=== PATIENT | male | born 1960 | race African-American/Black ===

== ENCOUNTER 2016-08-24 15:38 | Inpatient (IN) | payer OTHER ==
--- NOTE | ~2016-08-24 | DS ---
Discharge Summary [place] [id number] [place]. [address] NAME: RAHAT WEBB : 62 STATUS : DIS IN PAT#: [id number] AGE: 55 ADM/REG DATE : 08/24/16 MR#: [id number] REPORT SERV DATE: 08/31/16 DICTATED BY: DILLON THORPE DATE: 08/30/16 REPORT STATUS : Draft TRANSCRIBED BY: JUANCHO DATE: 08/30/16 ADMISSION DATE: 08/24/2016 DISCHARGE DATE: 08/30/2016 DISCHARGE DIAGNOSES: 1. Right upper quadrant pain/nausea. 2. Chronic hypertension. 3. Type 2 diabetes. 4. Hepatocellular carcinoma. 5. Increased liver enzymes. 6. Thrombocytopenia secondary to Nexavar. CONSULTATION: Giovanni Lopez M.D., [facility]. IMAGIN. CT abdomen and pelvis, 08/24/2016. Impression: Liver is enlarged and larger than prior exam. Largest dimension on CORONAL study 24.7 x 21.1 cm versus 21.4 x 17.8 cm. Widespread metastasis are present in the liver. Small volume of ascites in the celiac gutters and in the perisplenic space larger than on prior exam. 2. Chest x-ray, 08/24/2016. Impression: Lungs are clear. No cardiopulmonary abnormality. HOSPITAL COURSE: Please refer to history and physical dictated on 08/25/[address] Houston, also refer to interim note by Darlene Tate on 08/24/2016. This patient is a 55-year-old male, who presents with a history of hepatocellular carcinoma diagnosed in July 2016. He is currently under the care of Dr. Alexey Tovar. The patient presented in [facility]'s Emergency Room with complaints of intractable abdominal pain, nausea, and vomiting. Initial diagnostic workup indicated progression of metastatic hepatocellular cancer. The patient was admitted for further evaluation and treatment. Due to progression of disease the patient is being discharged to [facility] today. The patient and spouse are in agreement with plan. agency manager is also working with the patient regarding discharge needs. This patient's discharge medication will be addressed per [facility]. This discharge took less than 30 minutes. [facility]/JUANCHO Dillon Thorpe NP / [id number] Discharge Summary [place] [address] [address] NAME: RAHAT WEBB : 62 STATUS : DIS IN PAT#: [id number] AGE: 55 ADM/REG DATE : 08/24/16 MR#: [id number] REPORT SERV DATE: 08/31/16 DICTATED BY: DILLON THORPE DATE: 08/30/16 REPORT STATUS : Draft TRANSCRIBED BY: JUANCHO DATE: 08/30/16 CC: MD Terrance Connelly M.D.
--- NOTE | ~2016-08-24 | IDS ---
Interim Discharge Summary [facility] [address] [place]. [address] NAME: RAHAT WEBB : 62 STATUS : ADM IN PAT#: [id number] AGE: 55 ADM/REG DATE : 08/24/16 MR#: [id number] REPORT SERV DATE: 08/30/16 DICTATED BY: DATE: REPORT STATUS : Draft TRANSCRIBED BY: MODL DATE: 08/29/16 ADMISSION DATE: 08/24/2016 DISCHARGE DATE: DISCHARGE DATE: Interim summary covers dates of service between 08/24/2016 and 08/29/2016. INTERIM DIAGNOSES: 1. Right upper quadrant pain/nausea. 2. Chronic hypertension. 3. Type 2 diabetes. 4. Increased liver enzymes. 5. Thrombocytopenia. 6. Hepatocellular carcinoma. CONSULTATIONS: Dr. Lopez, [facility]. PERTINENT TESTS AND PROCEDURES: 1. CT of abdomen and pelvis without contrast, 08/24/2016. Impression. Liver is enlarged and larger than on prior exam. Largest dimension on coronal study 24.7 x 21.1 cm versus 21.4 x 17.8 cm. Widespread metastases are present in the liver. Small volume of ascites in the colic gutters and in the perisplenic space larger than on prior exam. 2. Chest x-ray, 08/24/2016. Impression: Lungs are clear. No acute cardiopulmonary abnormality. HOSPITAL COURSE: Chief complaint upon admission, severe abdominal pain, nausea, and vomiting. Please refer to history and physical dated 08/25/2016, provided by Dr. Jose Houston, for complete details pertaining to patient's initial presentation upon admission and health history. Briefly, the patient is a 55-year-old male, who is under the outpatient care of Dr. Alexey Tovar, [facility] for treatment of hepatocellular carcinoma diagnosed July 2016. The patient presented to the emergency department on August 24 with complaints of intractable abdominal pain, nausea, and vomiting. Initial diagnostic workup indicated progressive metastatic hepatocellular cancer. The patient was admitted for further evaluation and treatment. 1. Right upper quadrant pain and nausea. This is secondary to hepatocellular carcinoma, antitumor burden. The patient has extensive enlargement to the liver, and liver is palpable below the right costal margin and tender to palpation. The patient has been responding well to fentanyl patch in addition to p.o. pain medications with IV Dilaudid for severe breakthrough pain. 2. Acute on chronic hypertension. The patient was on Nexavar during this admission until August 28. This medication is known to elevate blood pressure and may induce Interim Discharge Summary [address] [place]. [address] NAME: RAHAT WEBB : 62 STATUS : ADM IN PAT#: [id number] AGE: 55 ADM/REG DATE : 08/24/16 MR#: [id number] REPORT SERV DATE: 08/30/16 DICTATED BY: DATE: REPORT STATUS : Draft TRANSCRIBED BY: MODL DATE: 08/29/16 hypertensive crisis. The patient's blood pressure continued to trend upward despite treatment with Apresoline IV p.r.n. HCTZ 25 mg p.o. daily was added during this admission in addition to continuation of Apresoline q.4 hours p.r.n. The patient has responded well to this treatment and also since Nexavar has been discontinued. 3. Type 2 diabetes. The patient's home metformin was discontinued upon admission. Sliding scale level 3 a.c. and at bedtime has been utilized as indicated. Blood glucose has remained stable and has ranged between 100 to 152 today. 4. Increased liver enzymes. This is secondary to aggressive hepatocellular carcinoma. The patient's direct bilirubin has increased from 3.7-4.4, total bilirubin has increased from 4.4-5.1. Alkaline phosphatase is slightly down from 427 to 401, and AST is slightly decreased from 854-629. No further labs will be obtained secondary to transition to hospice. 5. Thrombocytopenia, this is secondary to Nexavar. The patient's platelets have decreased dramatically over a short span of time decreasing from 790503 to 688138 to 18153 to [address] to 17,000 today. No intervention at this time in light of transition to hospice. 6. Hepatocellular carcinoma. This is very aggressive. The patient has been on Nexavar x2 weeks, but this is not long enough treatment for response. 7. Rapid progression. Nexavar had to be discontinued due to severe and acute thrombocytopenia. There are no further treatment options in the setting of rapid and aggressive disease. Oncology met with patient and his spouse today, and decision was made to transfer to [facility] [place], at discharge home tomorrow for end of life transition during terminal phase of disease process. CURRENT PLAN: The patient will transition home under the care of [facility], 08/30/2016. The patient's code status is now Do Not Resuscitate and Do Not Intubate. No further laboratory data will be obtained. Continue pain management. [facility]/JUANCHO DAVID Galicia / [id number] CC: Nga Valdez M.D.
--- NOTE | ~2016-08-24 | HP ---
History And Physical [facility] [address] [place]. [address] NAME: RAHAT MORGAN : 62 STATUS : ADM IN [facility]#: [id number] AGE: 55 ADM/REG DATE : 08/24/16 MR#: [id number] REPORT SERV DATE: 08/25/16 DICTATED BY: JOSE KOROMA DATE: 08/24/16 REPORT STATUS : Draft TRANSCRIBED BY: MODL DATE: 08/24/16 DATE OF ADMISSION: 08/24/2016 CHIEF COMPLAINT: Severe abdominal pain, nausea, and vomiting. HISTORY OF PRESENT ILLNESS: This is a 55-year-old male with a history of recently diagnosed hepatocellular carcinoma, a patient of Dr. Tovar, who presents to the emergency room at [facility], today with severe abdominal pain and above mentioned complaints. History is obtained from the patient and reviewing data available on the tarpipe system. According to Mr. Morgan who was recently diagnosed with hepatocellular cancer, was admitted here for COPD and abdominal pain, he did poorly after his discharge and in the last few days, started having sudden onset of distention of his abdomen with pain in his right upper quadrant and entire right side of his abdomen. This was associated with nausea and vomiting as well and he could not keep anything down. He also had some diarrhea without any bleeding from anywhere. His pain was so terrible today he could not even perform activities of daily living and decided to come to the emergency room for help. In the emergency room, a CT scan of his abdomen and pelvis showed enlarging liver with increasing ascites suggestive of progressive hepatic metastatic cancer. He required intravenous Dilaudid for pain in the emergency room and Hospitalist Service is asked to admit him for further evaluation and treatment. At the time of my evaluation, he denied any chest pain or palpitations. He had no orthopnea. He had severe discomfort from the abdominal pain. He denied any cough, hemoptysis, night sweats, or weight loss. He has not had any recent falls or loss of consciousness. He has no history of recent fevers or chills. He did have nausea and vomiting as mentioned above and some diarrhea as well. Vomitus was mostly bilious and clear. No history of recent hematemesis, hematochezia, or hematuria. No other history of recent travel or exposures other than those mentioned above. PAST MEDICAL HISTORY: Significant for recently diagnosed hepatocellular cancer, followed by Dr. Tovar, history of hepatitis C with ascites, history of atrial fibrillation, COPD, hypertension, diabetes mellitus type 2, coronary artery disease status post CABG done in 2015. SOCIAL HISTORY: He does not smoke, drink, or use recreational drugs. 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 FAMILY HISTORY: Noncontributory. MEDICATIONS: At home were reviewed by me in the chart today and reordered by me. REVIEW OF SYSTEMS: As in history of present illness. All other systems were reviewed in detail and are quite History And Physical [address] [place]. [address] NAME: RAHAT MORGAN : 62 STATUS : ADM IN [facility]#: [id number] AGE: 55 ADM/REG DATE : 08/24/16 MR#: [id number] REPORT SERV DATE: 08/25/16 DICTATED BY: JOSE KOROMA DATE: 08/24/16 REPORT STATUS : Draft TRANSCRIBED BY: JUANCHO DATE: 08/24/16 unremarkable. PHYSICAL EXAMINATION: GENERAL: This is a 55-year-old, in discomfort from abdominal pain. Otherwise, alert, awake, and oriented to time, place, and person. HEENT: His head is atraumatic, normocephalic. His pupils are equal, reacting to light and accommodating. External ocular muscles are intact. Sclerae are icteric. NECK: Supple with no jugular venous distention, lymphadenopathy, or thyromegaly. LUNGS: Clear to auscultation with decreased air entry bilaterally, otherwise clear. HEART: Heart sounds are regular with no murmurs, rubs, or gallops appreciated. ABDOMEN: Distended, tense. Liver was palpable about 15 cm below the right costal margin. Liver appears firm and is quite tender. Otherwise, abdomen did not have any rebound tenderness or guarding. Bowel sounds are positive. EXTREMITIES: Showed no cyanosis, clubbing, or edema. NEUROLOGIC: Grossly intact. No focal deficits. He was able to move all four extremities. Higher functions appeared intact. VITAL SIGNS: His temperature today was 98.4, pulse 65, respirations 25 a minute, blood pressure was 159/90, oxygen saturations were 97% on 2 L via nasal cannula. LABORATORY DATA: Reviewed on the tarpipe system showed a sodium of 131, potassium 4.9, chloride 94, and CO2 of 28, BUN was 22 with a creatinine of 1.21, and blood glucose is 111. His total protein was 8.6, albumin 1.8, and globulin 6.8 today, A/G ratio was 0.3. His total bilirubin was 5.9 today. This had gone up from 0.7 on 07/25/2016. His ALT was 84 and AST was 996. On 07/25, it was 980. Lipase was 179. Troponin today was 0.02. CBC showed a white blood cell count of 13,300, hemoglobin was 11.1, hematocrit 34, and platelet count was 303,000. Urinalysis today did not reveal any acute abnormality. Films of the CT scan of his abdomen, pelvis, and chest x-ray were reviewed by me on the PACS today and interpreted by me. Official radiology report on the CT of the abdomen and pelvis was also reviewed. It showed enlarging liver with worsening ascites consistent with progressive hepatic metastatic disease. Films of the chest x-ray reviewed by me on the PACS today and interpreted by me showed no lobar consolidations or effusions. There is some haziness on the left chest. CTA of the chest done on 07/23/2016, was also reviewed by me. Films did not show any such haziness. Lung amezcua were clear at that time. IMPRESSION: 1. Severe abdominal pain. 2. Progressive metastatic hepatocellular cancer. 3. Hypertension. 4. Diabetes mellitus type 2. 5. Coronary artery disease, status post coronary artery bypass graft. 6. History of atrial fibrillation. 7. Hepatitis C with ascites. 8. Chronic obstructive pulmonary disease. PLAN: We will admit Mr. Morgan to the oncology floor under the care of the Hospitalist Service. We will go ahead and consult Dr. Tovar, his oncologist, to see him in the morning, meanwhile provide intravenous Dilaudid as needed for pain control. The pain is History And Physical [address] [address] NAME: RAHAT MORGAN : 62 STATUS : ADM IN [facility]#: [id number] AGE: 55 ADM/REG DATE : 08/24/16 MR#: [id number] REPORT SERV DATE: 08/25/16 DICTATED BY: JOSE KOROMA DATE: 02/22/17 REPORT STATUS : Draft TRANSCRIBED BY: JUANCHO DATE: 08/24/16 probably secondary to the enlarging liver and metastatic hepatocellular cancer. There is mention on his last admission and discharge that he had such pain, but was not as bad as today. Meanwhile, we will establish blood sugar control with NovoLog given subcutaneously. We will start him on bronchodilators and provide supplemental oxygen therapy as well. We will continue all other medications and treatments as well. We will start him on SCDs for DVT prophylaxis tonight given his hepatocellular cancer and the risk of bleeding. He may be a candidate for hospice, but we will let Dr. Tovar address this in the morning with the patient. I have discussed all the above plans with the patient. His questions were answered and he is agreeable to the above recommendations. Hospitalist Service will be following him during his stay. /JUANCHO Jose Koroma M.D. / [id number]
[2016-08-24 15:26] LABS: BASOPHILS 0.3 %; BASOPHILS ABSOLUTE 0.04 10/3/uL (0.0-0.16); EOSINOPHILS 0.1 %; EOSINOPHILS ABSOLUTE 0.01 10/3/uL (0.0-0.53); ER CBC TAT 0 Hrs 10 Mins; HEMOGLOBIN 11.1 g/dL (13.6-17.8); IMMATURE GRANULOCYTES 0.5 %; IMMATURE GRANULOCYTES ABSOLUTE 0.06 10/3/uL (0.0-0.11); LYMPHOCYTES 10.1 %; LYMPHOCYTES ABSOLUTE 1.34 10/3/uL (0.67-4.30); MEAN CORPUS HGB CONC 32.6 g/dL (32.0-36.0); MEAN CORPUSCULAR HEMOGLOB 27.3 pg (26.0-34.0); MEAN PLATELET VOLUME 11.3 fL (9.2-13.0); MONOCYTES 12.1 %; MONOCYTES ABSOLUTE 1.61 10/3/uL (0.21-1.20); NEUTROPHILS 76.9 %; NEUTROPHILS ABSOLUTE 10.23 10/3/uL (2.02-8.40); PLATELET COUNT 303 10/3/uL (150-400); RED CELL COUNT 4.07 10/6/uL (4.7-6.1); WHITE BLOOD CELLS 13.3 10/3/uL (4.5-10.5)
[2016-08-24 15:27] LABS: MANUAL DIFF NO %; MEAN CORPUSCULAR VOLUME 83.5 fL (80-100); RBC DISTRIBUTION WIDTH 18.2 % (12.0-16.0)
[2016-08-24 15:32] LABS: ASCORBIC ACID (UR NOT ORDER) 40 (NEG); BILIRUBIN, URINE SMALL (NEG); ER URINALYSIS TAT 0 Hrs 13 Mins; KETONE, URINE NEGATIVE (NEG); LEUKOCYTE ESTERASE(NOT OR NEG (NEG); NITRITE (URINE) NEG (NEG); WBC (NOT ORDERED) (RFLEX) 4 (0-5)
[~2016-08-24 15:38] MED LIST: AMOXIL500 MG PO; ASAB PO; BENTYL20 PO; BETAPACE80 PO; BIAXIN5 PO; COMP10B PO; COUMADIN7.5 MG PO; FERROUS SULF325 M1 PO; FLAGYL250 MG PO; FOLIC PO; GLUCPH PO; HYDROCHLOROT25 MG PO; HYDROCHLOROTHIAZIDE PO; IRON OTC PO; IRON325 MG PO; JANTOVEN5 MG PO; KDUR20 PO; L40 PO; LEVAQUIN750 MG PO; LIPITOR PO; LIPITOR40 PO; LISINOPRIL40 MG PO; LOP25 PO; MAXALT10 MG PO; MIRALAXPKT PO; NEXAVAR200 PO; NORCO1 TA1 PO; NORV5 PO; NTG150 SL; OXYCOD PO; P20 PO; PROTONIX PO; SOTALOL PO; TIZANIDINE PO; TYLENOL PM PO; VITAMIN B-122500 MCG SL; ZANAFLEX 4 MG TA4 MG PO
[2016-08-24 15:45] LABS: CHLORIDE, SERUM 94 MMOL/L (96-112); CO2 (CARBON DIOXIDE) 28 MMOL/L (24-34); CREATININE 1.21 MG/DL (0.70-1.30); GFR AFRICAN AMERICAN 78 ML/MIN (>=60); GFR NON AFRICAN AMERICAN 67 ML/MIN (>=60); POTASSIUM, SERUM 4.9 MMOL/L (3.5-5.3); SGOT(AST) 996 U/L (5-40); SGPT(ALT) 84 U/L (5-65); SODIUM, SERUM 131 MMOL/L (135-148); TOTAL PROTEIN 8.6 G/DL (6.0-8.5); TROPONIN I <0.02 NG/ML (<0.05)
[2016-08-24 15:47] LABS: A/G RATIO 0.3 (0.7-1.9); ALBUMIN 1.8 G/DL (3.5-5.0); ALKALINE PHOSPHATASE 347 U/L (45-117); BUN (BLOOD UREA NITROGEN) 22 MG/DL (6-23); GLOBULIN 6.8 G/DL (2.5-4.1); GLUCOSE, SERUM 111 MG/DL (60-99); TOTAL BILIRUBIN 5.9 MG/DL (0-1.2)
[2016-08-24] MEDS ORDERED: DURA25 TOP (20:24)
[2016-08-25 05:37] LABS: BUN (BLOOD UREA NITROGEN) 19 MG/DL (6-23); CALCIUM, SERUM 7.8 MG/DL (8.5-10.4); CHLORIDE, SERUM 98 MMOL/L (96-112); GFR AFRICAN AMERICAN 98 ML/MIN (>=60); GFR NON AFRICAN AMERICAN 85 ML/MIN (>=60); GLUCOSE, SERUM 132 MG/DL (60-99); POTASSIUM, SERUM 4.8 MMOL/L (3.5-5.3); SODIUM, SERUM 132 MMOL/L (135-148)
[2016-08-25 05:43] LABS: CO2 (CARBON DIOXIDE) 23 MMOL/L (24-34)
[2016-08-25 05:44] LABS: PHOSPHORUS, SERUM 2.7 MG/DL (2.5-4.5)
[2016-08-25 05:50] LABS: HEMATOCRIT 31.6 % (40.0-51.0); HEMOGLOBIN 10.4 g/dL (13.6-17.8); MEAN CORPUS HGB CONC 32.9 g/dL (32.0-36.0); MEAN CORPUSCULAR HEMOGLOB 27.4 pg (26.0-34.0); MEAN CORPUSCULAR VOLUME 83.2 fL (80-100); MEAN PLATELET VOLUME 11.4 fL (9.2-13.0); PLATELET COUNT 261 10/3/uL (150-400); RBC DISTRIBUTION WIDTH 18.8 % (12.0-16.0); WHITE BLOOD CELLS 13.1 10/3/uL (4.5-10.5)
[2016-08-25 06:03] LABS: MANUAL DIFF YES %
[2016-08-25 06:22] LABS: PLATELET ESTIMATE ADQ (ADEQUATE); TARGET CELLS FEW (3-10/OIF) (0-1/OIF)
[2016-08-25 06:23] LABS: ANISOCYTOSIS 1+ (5-10/OIF) (0-5/OIF)
[2016-08-26 06:01] LABS: A/G RATIO 0.3 (0.7-1.9); ALBUMIN 1.6 G/DL (3.5-5.0); BASOPHILS 0.1 %; BASOPHILS ABSOLUTE 0.01 10/3/uL (0.0-0.16); BUN (BLOOD UREA NITROGEN) 16 MG/DL (6-23); CALCIUM, SERUM 7.9 MG/DL (8.5-10.4); CHLORIDE, SERUM 102 MMOL/L (96-112); CO2 (CARBON DIOXIDE) 25 MMOL/L (24-34); CREATININE 0.88 MG/DL (0.70-1.30); EOSINOPHILS 0 %; GFR AFRICAN AMERICAN 113 ML/MIN (>=60); GFR NON AFRICAN AMERICAN 97 ML/MIN (>=60); GLOBULIN 6.2 G/DL (2.5-4.1); HEMOGLOBIN 10.4 g/dL (13.6-17.8); IMMATURE GRANULOCYTES 0.4 %; IMMATURE GRANULOCYTES ABSOLUTE 0.05 10/3/uL (0.0-0.11); LYMPHOCYTES 12.4 %; LYMPHOCYTES ABSOLUTE 1.53 10/3/uL (0.67-4.30); MANUAL DIFF NO %; MEAN CORPUS HGB CONC 33.5 g/dL (32.0-36.0); MEAN CORPUSCULAR HEMOGLOB 27.5 pg (26.0-34.0); MONOCYTES 10.1 %; MONOCYTES ABSOLUTE 1.24 10/3/uL (0.21-1.20); NEUTROPHILS ABSOLUTE 9.49 10/3/uL (2.02-8.40); PLATELET COUNT 126 10/3/uL (150-400); POTASSIUM, SERUM 4.9 MMOL/L (3.5-5.3); RBC DISTRIBUTION WIDTH 19.1 % (12.0-16.0); RED CELL COUNT 3.78 10/6/uL (4.7-6.1); SGOT(AST) 510 U/L (5-40); SGPT(ALT) 57 U/L (5-65); SODIUM, SERUM 135 MMOL/L (135-148); TOTAL PROTEIN 7.8 G/DL (6.0-8.5); WHITE BLOOD CELLS 12.3 10/3/uL (4.5-10.5)
[2016-08-26 06:04] LABS: ALKALINE PHOSPHATASE 321 U/L (45-117); DIRECT BILIRUBIN 3.2 MG/DL (0.0-0.4); GLUCOSE, SERUM 168 MG/DL (60-99); INDIRECT BILIRUBIN(NOT ORDER) 0.2 MG/DL (0.1-0.9); TOTAL BILIRUBIN 3.4 MG/DL (0-1.2)
[2016-08-26 06:28] LABS: ANISOCYTOSIS 1+ (5-10/OIF) (0-5/OIF); PLATELET ESTIMATE SLT DEC (ADEQUATE)
[2016-08-26 06:29] LABS: HYPOCHROMIA 1+ (3-10/OIF) (0-2/OIF); MACROCYTES 1+ (5-10/OIF) (0-5/OIF); POLYCHROMASIA 1+ (2-5/OIF) (0-1/OIF); SCHISTOCYTES OCC (0-2/OIF)
[2016-08-27 05:19] LABS: BASOPHILS 0.3 %; BASOPHILS ABSOLUTE 0.04 10/3/uL (0.0-0.16); EOSINOPHILS 0.4 %; EOSINOPHILS ABSOLUTE 0.05 10/3/uL (0.0-0.53); IMMATURE GRANULOCYTES 0.9 %; IMMATURE GRANULOCYTES ABSOLUTE 0.12 10/3/uL (0.0-0.11); LYMPHOCYTES 13.7 %; LYMPHOCYTES ABSOLUTE 1.74 10/3/uL (0.67-4.30); MEAN CORPUS HGB CONC 31.9 g/dL (32.0-36.0); MEAN CORPUSCULAR HEMOGLOB 26.8 pg (26.0-34.0); MEAN CORPUSCULAR VOLUME 83.9 fL (80-100); MONOCYTES 9.2 %; MONOCYTES ABSOLUTE 1.17 10/3/uL (0.21-1.20); NEUTROPHILS 75.5 %; NEUTROPHILS ABSOLUTE 9.62 10/3/uL (2.02-8.40); RBC DISTRIBUTION WIDTH 19.8 % (12.0-16.0); RED CELL COUNT 4.11 10/6/uL (4.7-6.1); WHITE BLOOD CELLS 12.7 10/3/uL (4.5-10.5)
[2016-08-27 05:29] LABS: HEMATOCRIT 34.5 % (40.0-51.0); PLATELET COUNT 77 10/3/uL (150-400)
[2016-08-27 05:31] LABS: A/G RATIO 0.3 (0.7-1.9); ALBUMIN 1.8 G/DL (3.5-5.0); BUN (BLOOD UREA NITROGEN) 18 MG/DL (6-23); CALCIUM, SERUM 8.1 MG/DL (8.5-10.4); CHLORIDE, SERUM 100 MMOL/L (96-112); CO2 (CARBON DIOXIDE) 23 MMOL/L (24-34); DIRECT BILIRUBIN 3.1 MG/DL (0.0-0.4); GFR AFRICAN AMERICAN 112 ML/MIN (>=60); GFR NON AFRICAN AMERICAN 96 ML/MIN (>=60); GLOBULIN 6.6 G/DL (2.5-4.1); INDIRECT BILIRUBIN(NOT ORDER) 0.5 MG/DL (0.1-0.9); SGOT(AST) 626 U/L (5-40); SGPT(ALT) 81 U/L (5-65); SODIUM, SERUM 133 MMOL/L (135-148); TOTAL BILIRUBIN 3.6 MG/DL (0-1.2); TOTAL PROTEIN 8.4 G/DL (6.0-8.5)
[2016-08-27 05:35] LABS: ALKALINE PHOSPHATASE 395 U/L (45-117); GLUCOSE, SERUM 97 MG/DL (60-99)
[2016-08-27 05:58] LABS: ANISOCYTOSIS 1+ (5-10/OIF) (0-5/OIF); PLATELET ESTIMATE DEC (ADEQUATE); POLYCHROMASIA 1+ (2-5/OIF) (0-1/OIF)
[2016-08-28 06:39] LABS: BASOPHILS 0.2 %; BASOPHILS ABSOLUTE 0.02 10/3/uL (0.0-0.16); EOSINOPHILS 0 %; HEMOGLOBIN 10.7 g/dL (13.6-17.8); IMMATURE GRANULOCYTES 0.5 %; IMMATURE GRANULOCYTES ABSOLUTE 0.05 10/3/uL (0.0-0.11); LYMPHOCYTES 14.7 %; LYMPHOCYTES ABSOLUTE 1.62 10/3/uL (0.67-4.30); MEAN CORPUS HGB CONC 31.5 g/dL (32.0-36.0); MEAN CORPUSCULAR HEMOGLOB 26.6 pg (26.0-34.0); MEAN CORPUSCULAR VOLUME 84.4 fL (80-100); MONOCYTES 9.6 %; MONOCYTES ABSOLUTE 1.06 10/3/uL (0.21-1.20); NEUTROPHILS ABSOLUTE 8.26 10/3/uL (2.02-8.40); RBC DISTRIBUTION WIDTH 19.9 % (12.0-16.0); RED CELL COUNT 4.03 10/6/uL (4.7-6.1)
[2016-08-28 06:41] LABS: PLATELET COUNT 31 10/3/uL (150-400)
[2016-08-28 06:42] LABS: MANUAL DIFF NO %
[2016-08-28 07:00] LABS: ANISOCYTOSIS 1+ (5-10/OIF) (0-5/OIF)
[2016-08-28 07:01] LABS: HYPOCHROMIA 1+ (3-10/OIF) (0-2/OIF); POLYCHROMASIA 1+ (2-5/OIF) (0-1/OIF)
[2016-08-28 07:22] LABS: A/G RATIO 0.3 (0.7-1.9); ALBUMIN 1.7 G/DL (3.5-5.0); BUN (BLOOD UREA NITROGEN) 16 MG/DL (6-23); CALCIUM, SERUM 8.5 MG/DL (8.5-10.4); CHLORIDE, SERUM 99 MMOL/L (96-112); CO2 (CARBON DIOXIDE) 23 MMOL/L (24-34); GFR AFRICAN AMERICAN 117 ML/MIN (>=60); GFR NON AFRICAN AMERICAN 101 ML/MIN (>=60); GLOBULIN 6.3 G/DL (2.5-4.1); GLUCOSE, SERUM 103 MG/DL (60-99); PHOSPHORUS, SERUM 3.2 MG/DL (2.5-4.5); POTASSIUM, SERUM 4.9 MMOL/L (3.5-5.3); SGOT(AST) 854 U/L (5-40); SGPT(ALT) 112 U/L (5-65); SODIUM, SERUM 132 MMOL/L (135-148)
[2016-08-28 07:24] LABS: ALKALINE PHOSPHATASE 427 U/L (45-117); DIRECT BILIRUBIN 3.7 MG/DL (0.0-0.4); INDIRECT BILIRUBIN(NOT ORDER) 0.7 MG/DL (0.1-0.9); TOTAL BILIRUBIN 4.4 MG/DL (0-1.2)
[2016-08-28 09:56] LABS: INTERNATIONAL NORMAL RATI 1.2 UNITS (-); PARTIAL THROMBO TIME 31.6 SEC (22.5-37.2); PROTIME (NOT ORD) 15.2 SEC (12.0-14.5)
[2016-08-29 05:27] LABS: BASOPHILS 0.2 %; BASOPHILS ABSOLUTE 0.02 10/3/uL (0.0-0.16); EOSINOPHILS 0.1 %; EOSINOPHILS ABSOLUTE 0.01 10/3/uL (0.0-0.53); HEMATOCRIT 32.1 % (40.0-51.0); HEMOGLOBIN 10.6 g/dL (13.6-17.8); IMMATURE GRANULOCYTES 0.3 %; IMMATURE GRANULOCYTES ABSOLUTE 0.04 10/3/uL (0.0-0.11); LYMPHOCYTES 13.5 %; LYMPHOCYTES ABSOLUTE 1.68 10/3/uL (0.67-4.30); MEAN CORPUSCULAR HEMOGLOB 27.6 pg (26.0-34.0); MEAN CORPUSCULAR VOLUME 83.6 fL (80-100); MONOCYTES 8.5 %; MONOCYTES ABSOLUTE 1.06 10/3/uL (0.21-1.20); NEUTROPHILS 77.4 %; NEUTROPHILS ABSOLUTE 9.65 10/3/uL (2.02-8.40); RBC DISTRIBUTION WIDTH 20.5 % (12.0-16.0); RED CELL COUNT 3.84 10/6/uL (4.7-6.1); WHITE BLOOD CELLS 12.5 10/3/uL (4.5-10.5)
[2016-08-29 05:28] LABS: MANUAL DIFF NO %; PLATELET COUNT 17 10/3/uL (150-400)
[2016-08-29 05:31] LABS: A/G RATIO 0.3 (0.7-1.9); ALBUMIN 1.7 G/DL (3.5-5.0); BUN (BLOOD UREA NITROGEN) 15 MG/DL (6-23); CALCIUM, SERUM 8.6 MG/DL (8.5-10.4); CHLORIDE, SERUM 96 MMOL/L (96-112); CO2 (CARBON DIOXIDE) 24 MMOL/L (24-34); CREATININE 0.74 MG/DL (0.70-1.30); GFR AFRICAN AMERICAN 121 ML/MIN (>=60); GFR NON AFRICAN AMERICAN 105 ML/MIN (>=60); GLOBULIN 6.2 G/DL (2.5-4.1); GLUCOSE, SERUM 117 MG/DL (60-99); POTASSIUM, SERUM 4.5 MMOL/L (3.5-5.3); SGOT(AST) 629 U/L (5-40); SGPT(ALT) 93 U/L (5-65); SODIUM, SERUM 130 MMOL/L (135-148); TOTAL PROTEIN 7.9 G/DL (6.0-8.5)
[2016-08-29 05:42] LABS: ALKALINE PHOSPHATASE 401 U/L (45-117); DIRECT BILIRUBIN 4.4 MG/DL (0.0-0.4); INDIRECT BILIRUBIN(NOT ORDER) 0.7 MG/DL (0.1-0.9); TOTAL BILIRUBIN 5.1 MG/DL (0-1.2)
[2016-08-29 07:05] LABS: ANISOCYTOSIS 1+ (5-10/OIF) (0-5/OIF); HYPOCHROMIA 1+ (3-10/OIF) (0-2/OIF)
[2016-08-30] MEDS ORDERED: . (13:10)
== END 2016-08-30 16:55 | disposition hospice, home (50) | DRG 436 ==
LOC: ER 15:38 → 4EA 20:33
PROVIDERS: Hospitalist; Internal Medicine Hematology & Oncology; Internal Medicine Pulmonary Disease; Nurse Practitioner Family
DX: C22.7 Other specified carcinomas of liver (principal); B17.10 Acute hepatitis C without hepatic coma; E83.51 Hypocalcemia; E83.42 Hypomagnesemia; E88.09 Other disorders of plasma-protein metabolism, not elsewhere classified; I10 Essential (primary) hypertension; E11.9 Type 2 diabetes mellitus without complications; I25.10 Atherosclerotic heart disease of native coronary artery without angina pectoris; J44.9 Chronic obstructive pulmonary disease, unspecified; I48.0 Paroxysmal atrial fibrillation; Z79.01 Long term (current) use of anticoagulants; Z95.1 Presence of aortocoronary bypass graft
CPT/HCPCS: 71010; 74176; 80048; 80053; 81001; 82248; 82330; 82962; 83690; 83735; 83880; 84100; 84132; 84443; 84484; 85025; 85384; 85610; 85730; 93005; 94640; 96374; 96375; 96376; 99285; A9270-GY; J0360; J1170; J1940; J2405; J2550